=== PATIENT | female | born 1990 | race Caucasian/White ===

== ENCOUNTER 2018-10-26 17:20 | Outpatient (REF) | payer OTHER, SELFPAY ==
--- NOTE | 2018-10-26 11:50 | PAPFT_PTH ---
PATIENT: La Carpenter LOC: [facility] U#:[id number] AGE/SX: 27/F ROOM: RE10/26/[address]: Candelaria Snyder RN : 1990 BED: DIS: 10/26/2018 SPEC #: [id number] RECD: 10/26/18 17:45 STATUS: MUSTAPHA REMariluz #: [id number] DONN: 10/26/18 11:[address]: Candelaria Snyder DEPT: [facility] Cytology RECD BY: Guerline Paulson ENTERED: 10/26/18 17:45 SP TYPE: PAPFT OTHR DR: Shanelle Serrano Tissues: 1 - CX/ENDOCX FOR PAP SMEARS Procedures: PAP THIN PREP/UVM Screening Comments: [id number]
== END 2018-10-26 17:40 ==
LOC: LBN 17:20
PROVIDERS: PCP Pediatrics; Visit Provider Advanced Practice Midwife
DX: Z12.4 Encounter for screening for malignant neoplasm of cervix (principal)
CPT/HCPCS: 88142

== ENCOUNTER 2018-10-27 01:55 | Outpatient (CLI) | payer OTHER, SELFPAY ==
--- NOTE | 2018-10-27 12:14 | DI.US_ITS ---
SYMPTOMS/DIAGNOSIS: PT WANTS IUD REMOVED, UNABLE TO ACCURATELY LOCATE, T83.89XA PELVIC ULTRASOUND: Transabdominal and transvaginal examination was performed. The uterus measures 8.5 cm long x 4.8 cm AP x 6.6 cm transverse. The endometrial stripe is within normal limits at .3 cm. There is an intrauterine device in good position within the endometrial canal. The uterus is retroverted. No myometrial mass is present. The right ovary measures 4 x 2.1 x 3.4 cm. There are follicular cysts present. There is normal blood flow to the right ovary. The largest follicular cyst measures 2.7 x 1.7 cm. No evidence of torsion is seen. The left ovary measures 3.6 x 2.5 x 2.3 cm. There is normal blood flow. No evidence of torsion. There is a 3.2 cm simple cyst on the left ovary. No free pelvic fluid or hydronephrosis is identified. IMPRESSION: 1. Intrauterine device seen within the endometrial canal in good position. 2. Retroverted uterus.
== END 2018-10-27 02:15 ==
PROVIDERS: PCP Pediatrics; Visit Provider Advanced Practice Midwife
DX: T83.89XA Other specified complication of genitourinary prosthetic devices, implants and grafts, initial encounter (principal); Z30.431 Encounter for routine checking of intrauterine contraceptive device; N85.4 Malposition of uterus
CPT/HCPCS: 76830; 76856

== ENCOUNTER 2019-10-01 00:32 | Outpatient (CLI) | payer MEDICAID, SELFPAY ==
--- NOTE | 2019-10-01 09:15 | DI.US_ITS ---
EXAM: US OB 2-3 TRIMESTER CLINICAL HISTORY: UNCOMPLICATED , ROSMERY 02/19/20, SURVEY TECHNIQUE: Ultrasound performed using standard protocol. COMPARISON: US PELVIS TRANSVAGINAL from 10/27/2018 FINDINGS: OB ultrasound was performed utilizing 2nd trimester protocol. biometry is consistent with a ge stational age of 20 weeks 2 days and EDC of 02/16/2020. Placenta is posterior with no placenta previ a. There is visually a normal quantity of amniotic fluid. anomaly screen is within normal [place] its as per the attached checklist. cardiac activity observed at a rate of 157 BPM.
== END 2019-10-01 00:52 ==
PROVIDERS: PCP Pediatrics; Visit Provider Midwife
DX: Z34.92 Encounter for supervision of normal pregnancy, unspecified, second trimester (principal); Z3A.20 20 weeks gestation of pregnancy
CPT/HCPCS: 76805

== ENCOUNTER 2019-11-28 02:07 | Outpatient (CLI) | payer MEDICAID, SELFPAY ==
--- NOTE | 2019-11-28 | DI.US_ITS ---
EXAM: US OB JOSE WEIGHT CLINICAL HISTORY: FUNDAL HEIGHTS MEASUREMENTS >3 CM LARGER THAN NORMAL TECHNIQUE: Ultrasound performed using standard protocol. COMPARISON: US OB 2-3 TRIMESTER from 10/01/2019 FINDINGS: Ob ultrasound was performed utilizing limited 3rd trimester protocol. biometry is consistent w ith gestational age of 28 weeks 4 days and EDC of 02/16/2020. The estimated weight is 1207 grams which is at the 43rd percentile for predicted gestational ag e Placenta is posterior with no placenta previa. There is visually a normal quantity of amniotic fluid and the JOSE is 14. Fetus is in cephalic presentation. cardiac activity observed at a rate of 141 BPM. DATA REPOSITORY:
== END 2019-11-28 02:27 ==
PROVIDERS: PCP Pediatrics; Visit Provider Midwife
DX: Z34.93 Encounter for supervision of normal pregnancy, unspecified, third trimester (principal); Z3A.28 28 weeks gestation of pregnancy
CPT/HCPCS: 76816

== ENCOUNTER 2023-12-20 11:47 | Outpatient (REF) | payer MEDICAID, SELFPAY ==
--- NOTE | 2023-12-20 11:15 | PAPFT_PTH ---
PATIENT: La Carpenter LOC: [facility] U#:[id number] AGE/SX: 33/F ROOM: RE12/20/[address]: Brionna Husain NP : 1990 BED: DIS: 12/20/2023 SPEC #: [id number] RECD: 12/20/23 12:59 STATUS: MUSTAPHA REMariluz #: [id number] DONN: 12/20/23 11:[address]: Brionna Husain NP DEPT: [facility] Cytology RECD BY: Guerline Paulson ENTERED: 12/20/23 13:00 SP TYPE: PAPFT OTHR DR: Sahnelle Serrano Tissues: 1 - CX/ENDOCX FOR PAP SMEARS Procedures: PAP THIN PREP/UVM Screening HPV DNA PROBE Comments: [id number]
== END 2023-12-20 11:48 | disposition home or self-care (01) ==
LOC: LBN 11:47
PROVIDERS: PCP Pediatrics; Visit Provider Nurse Practitioner Women's Health
DX: Z12.4 Encounter for screening for malignant neoplasm of cervix (principal); Z01.419 Encounter for gynecological examination (general) (routine) without abnormal findings; Z11.51 Encounter for screening for human papillomavirus (HPV)
CPT/HCPCS: 88142; 87624

== ENCOUNTER 2024-02-13 04:42 | Outpatient (CLI) | payer MEDICAID, SELFPAY ==
[2024-02-13 13:27] LABS: HGB 12.7 g/dL (11.2-15.7); MCH 28.5 pg (27.0-33.0); MCHC 32.6 % (32.0-36.0); MCV 88 fL (80-95); Platelet Count 266 10^3/uL (130-400); RBC 4.45 10^6/uL (3.93-5.22); RDW 13.5 % (11.7-14.6); RDW-SD 43.5 fL; WBC 7.15 10^3/uL (4.4-10.8)
[2024-02-13 14:01] LABS: TSH (W/Ref FT4) 1.84 uIU/mL (0.36-3.74)
== END 2024-02-13 04:43 | disposition home or self-care (01) ==
LOC: LBO 04:42
PROVIDERS: PCP Pediatrics; Visit Provider Obstetrics & Gynecology
DX: Z01.818 Encounter for other preprocedural examination (principal); N92.0 Excessive and frequent menstruation with regular cycle
CPT/HCPCS: 36415; 85027; 84443

== ENCOUNTER 2024-02-15 10:42 | Day surgery (SDC) | payer MEDICAID, SELFPAY ==
[2024-02-15] VITALS (14 sets, daily range): BP systolic 130–142; BP diastolic 82–99; PULSE 65–88; RESP 14–19; TEMP 36.3–36.6; O2SAT 98–100; BMI 38.0
[2024-02-15] MEDS: Lactated Ringers 1,000 ML 125 ML IV (11:32)
[2024-02-15 11:34] LABS: HCT 38.3 % (36.0-46.0); HGB 12.6 g/dL (11.2-15.7); MCH 28.8 pg (27.0-33.0); MCHC 32.9 % (32.0-36.0); MCV 87 fL (80-95); MPV 8.8 fL (8.0-11.0); Platelet Count 252 10^3/uL (130-400); RBC 4.38 10^6/uL (3.93-5.22); RDW 13.3 % (11.7-14.6); RDW-SD 43.1 fL
--- NOTE | 2024-02-15 11:45 | ANES.PREOP_ITS ---
General Info Date of Service Date Performed: 02/15/24 Height: 5 ft 3 in Weight: 97.4 kg Body Mass Index (BMI): 38.0 Surgical Procedure: Operation Date: 02/15/24 10:55 Proposed Procedure Side Surgeon p Jus Endometrial Ablation, Deb Russell MD Actual Procedure Side Surgeon p Jus Endometrial AblationDbe MD Pre-Op Diagnosis Post-Op Diagnosis Menorrhagia with regular cycle Meds Allergies and Home Medications Allergies Allergy/AdvReac Type Severity Reaction Status Date / Time No Known Allergies Allergy Verified 02/15/24 11:02 Home Medication Medication Instructions Recorded acetaminophen 325 mg tablet 650 mg (2 x 325 mg) PO Q4H PRN PRN 10/15/15 (Tylenol) Current Visit Medications: Current Medications Generic Name Dose Route Start Last Admin Trade Name Freq PRN Reason Stop Dose Admin Ringer's Solution 1,000 mls @ 125 mls/hr 02/15/24 06:00 02/15/24 11:32 IV 02/15/24 23:59 125 mls/hr INFUSION TAVIA Administration IV Miscellaneous Supplies 1 each 02/15/24 06:00 Iv Access IV 02/15/24 23:59 DIRECTED TAVIA Sodium Chloride 0 ml 02/15/24 06:00 Normal Saline Flush 10 Ml Syr IV 02/15/24 23:59 PRN PRN Sodium Chloride 0 ml 02/15/24 06:00 Normal Saline 10 Ml Vial IJ 02/15/24 23:59 DIRECTED PRN Sterile Water 0 ml 02/15/24 06:00 Water,Injection,Sterile 10 Ml Vial IJ 02/15/24 23:59 DIRECTED PRN PFSH Active Problems Active Problems: Problem Status Onset Code Menorrhagia with regular cycle N92.0 Frequent headaches R51.9 Medical History Medical History Kidney stones s/p stent placement Surgical History Surgical History Previous section History of cholecystectomy Tobacco Smoking/Tobacco Use Status: Never Alcohol Alcohol Intake: current Alcohol intake frequency: holidays/special occasions only Substance Use Substance use: Never Substance use type: does not use Prental History History 2 3 Para 3 Hx # Term Pregnancies Multiple births Hx # Pregnancies Ectopic pregnancies AB induced Hx Number of Living Children AB spontaneous Vital Signs and Lab Results Vital Signs Most Recent Vital Signs in EMR: Most Recent Vital Signs Temp Pulse Resp BP Pulse Ox 36.3 C L 71 16 130/88 98 02/15/24 11:04 02/15/24 11:04 02/15/24 11:04 02/15/24 11:04 02/15/24 11:04 Lab Results 02/15/24 11:20 Blood Type / Crossmatch: 2 No Data to Display Complete Blood Count: 2 White Blood Count 5.60 10^3/uL (4.4-10.8) 02/15/24 11:20 Red Blood Count 4.38 10^6/uL (3.93-5.22) 02/15/24 11:20 Hemoglobin 12.6 g/dL (11.2-15.7) 02/15/24 11:20 Hematocrit 38.3 % (36.0-46.0) 02/15/24 11:20 Platelet Count 252 10^3/uL (130-400) 02/15/24 11:20 Complete Metabolic Panel: 2 No Data to Display Liver Function Panel: 2 No Data to Display Coagulation Panel: 2 No Data to Display Cardiac Panel: 2 No Data to Display Arterial Blood Gas: 2 No Data to Display Venous Blood Gas: 2 No Data to Display Pancreas Panel: 2 No Data to Display Thyroid Panel: 2 Thyroid Stimulating Hormone (TSH) 1.84 uIU/mL (0.36-3.74) 02/12 13:15 Infectious Disease: 2 No Data to Display Blood Cultures: 2 No Data to Display Toxicology Panel: 2 No Data to Display Panel: 2 No Data to Display Anesthesia Assessment and Plan Anesthesia History Personal History: No History of Anesthesia Complications Family History: No Family History of Anesthesia Complications Exercise Tolerance Exercise Tolerance: Metabolic Equivalents>4 Pertinent Negatives Pertinent Negatives: No Symptoms of GERD Cardiac & Pulmonary Exam Cardiac Exam: Normal S1/S2 Heart Sounds Pulmonary Exam: Clear Bilateral Breath Sounds Implantable Cardiac Device Does patient have a Pacemaker or an ICD?: No Airway Exam Known Difficult Airway: No Mallampati Class: 1 Mouth Opening: Normal (> 3cm) Thyromental Distance: Greater than 3 cm Neck Range of Motion: Full ROM Neck Circumference: Normal Teeth Condition: Normal Dentition ASA Classification ASA Score: ASA 2 Emergency Case?: No NPO Status NPO Status: NPO Clears >2 hours, Solids >8 hours Status Status: Not Per Patient Anesthesia Plan Resuscitation Status: Full Code Anesthesia Technique: General Anesthesia Airway Planned: LMA Monitors Used: Standard Monitors
--- NOTE | 2024-02-15 12:25 | ENDOMET_PTH ---
PATIENT: La Carpenter LOC: [facility] U#:[id number] AGE/SX: 33/F ROOM: RE02/15/[address]: Kelle Russell MD : 1990 BED: DIS: 02/15/2024 SPEC #: [id number] RECD: 02/15/24 13:17 STATUS: MUSTAPHA REQ #: [id number] DONN: 02/15/24 12:[address]: Kelel Russell DEPT: Surgical Specimen RECD BY: Guerline Paulson ENTERED: 02/15/24 13:17 SP TYPE: Endomet OTHR DR: Marga Choudhary Tissues: 1 - ENDOMETRIUM BX/BONNIE Procedures: GROSS AND MICRO LEVEL 4 Comments: [id number]
[2024-02-15] MEDS: Silver Nitrate Stick 1 EACH (12:34)
--- NOTE | 2024-02-15 12:49 | ROE_ITS ---
Date of service: 02/15/24 Time of Service: 12:50 Operative Note Operative Note DATE OF PROCEDURE: 02/15/24 PRE-OP DIAGNOSIS: Heavy menstrual bleeding POST-OP DIAGNOSIS: same PROCEDURE: Hysteroscopy, D&C, novasure endometrial ablation SURGEON: Kelle Russell Refer to Anesthesia Record ESTIMATED BLOOD LOSS: 50 COMPLICATIONS: None Patient was transported to: same day Patient's condition: stable Indications: Pt had been experiencing very heavy periods for years. She had a normal sono. She had unwanted side effects from hormonal treatment and opted for uterine ablation. Findings: Retroverted uterus with normal appearing endoemtrium and ostia. Normal external genitalia, vagina and cervix. More bleeding from tenaculum site on the cervix then normal - easily stopped with 1 figure of eight suture. Procedure Description: After informed consent was signed the patient was taken to the operating room and given General room air anesthesia.? SCDs were placed on her legs.? She was prepped and draped in the dorsal lithotomy position in the [facility].? A time out was performed. Her bladder was drained of urine if not done just prior to arrival to the room.? Exam under anesthesia revealed normal external genitalia, vagina normal for age and a normal sized uterus. A speculum was placed into the vagina to reveal the cervix.? The anterior lip of the cervix was grasped with a single tooth tenaculum.?? The cervical length was measured with a large dilator at 4.5cm. The cervix was then dilated until a uterine sound could be inserted to measure the total length at 9.5cm. The?cavity length was then calculated at 5cm. The hysteroscope was assembled and the uterine cavity was visualized. No obvious abnormalities were noted. A sharp curettage was performed. The novasure device was opened and the cavity length set. It was inserted into the endometrial cavity and the width was sangeetha sured at 4.8cm. The cavity assessment was performed and passed. The device was then deployed for the appropriate amount of time. The device was removed and the wand inspected and appeared thoroughly charred. The hysteroscope was again inserted into the endometrial cavity and it appeared to be thoroughly treated. It was removed from the endometrial cavity. The tenaculum was removed from the cervix. There continued to be moderate bleeding from the right tenaculum site that did not stop with silver nitrate application. Therefore a [id number] suture of 3-0 vicryl was placed with excellent hemostasis resulting.? The speculum was removed from the vagina. The patient was placed back into the supine position.? She was moved to the stretcher and taken to the recovery room in stable condition.
--- NOTE | 2024-02-15 13:54 | W.ANESPOSTOP ---
Postoperative Evaluation Date, Time and Location Date Performed: 02/15/24 Time Performed: 13:54 Patient Location: Day Surgery Unit Vital Signs Most Recent Imported Vital Signs: Most Recent Vital Signs Temp Pulse Resp BP Pulse Ox 36.4 C L 67 16 135/93 H 100 02/15/24 13:23 02/15/24 13:23 02/15/24 13:23 02/15/24 13:23 02/15/24 13:23 Pain Score Most Recent Pain Score: Most Recent Pain Score Pain Level 3 02/15/24 13:23 Assessment Mental Status: Awake (Alert & Oriented to Patient Baseline) Airway and Respiratory Function: Patent airway with normal (patient baseline) respiratory exam Cardiovascular Function: Hemodynamically Stable Hydration Status: Adequately Hydrated Nausea & Vomiting: No Nausea or Vomiting Pain: Pt. Denies Any Pain Peripheral Nerve Block: Patient did not receive a nerve block
== END 2024-02-15 14:20 | disposition home or self-care (01) ==
PROVIDERS: PCP Family Medicine; Visit Provider Obstetrics & Gynecology
PROC: (CPT 58353; principal; 2024-02-15 10:45)
DX: N92.0 Excessive and frequent menstruation with regular cycle (principal)
CPT/HCPCS: 58563; 36415; 85027; 86850; 86900; 86901; 88305; J0665; J1100; J1885; J2001; J2405; J2704

== ENCOUNTER → 2024-03-06 01:52 | Outpatient (CLI) | payer MEDICAID, SELFPAY ==
--- NOTE | 2024-03-06 07:45 | DI.US_ITS ---
Exam(s) US PELVIS TRANSVAGINAL EXAM: US PELVIS TRANSVAGINAL CLINICAL HISTORY: hx of endometrial ablation. now bleeding,PELVIC PAIN,R10.2,N92.0,Z98.890 TECHNIQUE: Transabdominal and transvaginal imaging was performed using standard protocol. COMPARISON: US US PELVIS TRANSVAGINAL from 10/27/2018 FINDINGS: UTERUS: Retroverted. 8.9 x 4.9 x 7.1 cm Endometrium: 11 mm no fluid or focal abnormality. Myometrium: Heterogeneous. Few small fibroids. Cervix: Unremarkable. OVARIES: Right: Cyst or mass: None. Left: Cyst or mass: None. DOPPLER: Color: Symmetric and uniform flow to both ovaries. No hyperemia. CUL-DE-SAC: Free fluid: None. IMPRESSION: 1. Heterogeneous myometrium with a few small fibroids. Endometrium shows no focal abnormality. 2. Unremarkable bilateral ovaries. DATA REPOSITORY:
== END ==
PROVIDERS: PCP Family Medicine; Visit Provider Obstetrics & Gynecology Gynecology
DX: R10.2 Pelvic and perineal pain (principal); N92.0 Excessive and frequent menstruation with regular cycle; Z98.890 Other specified postprocedural states
CPT/HCPCS: 76830; 76856

== ENCOUNTER 2024-12-24 08:40 | Outpatient (REF) | payer MEDICAID, SELFPAY ==
[2024-12-25 12:35] LABS: Chlamydia Result Negative (Negative); GC Result Negative (Negative)
== END 2024-12-24 08:41 | disposition home or self-care (01) ==
LOC: LBN 08:40
PROVIDERS: PCP Family Medicine; Visit Provider Nurse Practitioner Women's Health
DX: Z11.3 Encounter for screening for infections with a predominantly sexual mode of transmission (principal)
CPT/HCPCS: 87491; 87591